=== PATIENT | male | born 1985 | race Caucasian/White ===

== ENCOUNTER 2016-03-02 14:27 | Emergency (ER) | payer BC ==
--- NOTE | 2016-03-02 14:31 | US ---
Testicular ultrasound 1327 hours. History: Right testicular pain for 2 days. Findings: Right testicle: Is diffuse heterogeneous echotexture to the right testicle. No focal mass is seen. Th e right testicle measures 4.9 x 3.7 x 3 cm. There is mild increase in color flow and pattern to the r ight testicle. There is moderate thickening associated with the right epididymis, especially the epid idymal tail measures about 16 mm. There is increase color flow enhancement associated with the epidid ymis as well. There are 2 incidental calcifications suspected in the right epididymal tail. Mild to m oderate right-sided hydrocele is noted. Left testicle: There is a normal homogeneous echotexture to the left testicle which measures 4.2 x 2. 8 x 2.4 cm. Normal color flow Doppler pattern is seen. The left epididymis is normal in appearance an d size. There is normal color flow pattern to the epididymis on the left as well. Small left-sided hy drocele is evident. There is no varicocele. Impression: 1. Right-sided epididymoorchitis suspected. These findings were discussed by telephone with Dr. Bhupendra Johnson at 1424 hrs.
[2016-03-02 14:40] VITALS: TEMP 98.4
--- NOTE | 2016-03-02 14:56 | EDPHY ---
H & P Time Seen by Provider: 03/02/16 14:33 HPI/ROS: HPI Testicular swelling. 30-year-old female by private vehicle with his . This patient complains of right-sided testicular swelling without pain since Thursday. No history of trauma. He has not had any associated fever, parotid gland discomfort or other indication of Mumps. He is immunocompetent and fully immunized. He is here with his and is monogamous. Prior to arrival he was seen by his primary care physician Dr. Bhupendra Johnson. He was sent to the emergency department to have a testicular ultrasound done. I received a call from radiologist Dr. Hermilo Lopez who informed me the ultrasound indicated epididymitis orchitis involving the right testicle. No evidence of torsion or other pathology. ROS: Constitutional: No fever, no chills. No weakness. Eyes: No discharge. No changes in vision. ENT: No sore throat. No nasal congestion or rhinorrhea. Respiratory: No cough. No shortness of breath. Cardiac: No chest pain, no palpitations. Gastrointestinal: No abdominal pain, no vomiting, no diarrhea. Genitourinary: No hematuria. No dysuria or increased frequency with urination. As above. Musculoskeletal: No back pain. No neck pain. No myalgias or arthralgias. Skin: No rashes. Neurological: No headache. No focal weakness or altered sensation. Past medical history: Denies. Social history: Here with his . Nonsmoker. Physical Exam: General Appearance: Alert, no distress. This patient is responding to questions appropriately and in full sentences. This patient appears well- hydrated and well-nourished. Eyes: Pupils equal and round no pallor or injection. No lid edema, erythema or injection. Testicular exam: He has swelling to the right testicle and right epididymis without significant tenderness on palpation. There is mild associated erythema. No warmth. Penis and testicular exam otherwise normal. No discharge. No scrotal or skin lesions. Gastrointestinal: Abdomen is soft and nontender, no masses, bowel sounds normal. No focal tenderness at McBurney's point. No Willingham sign. Neurological: Motor sensory function is grossly intact. Cranial nerves are normal. Gait is normal. Skin: Warm and dry, no rashes. Extremities are symmetrical. All joints range without pain or impingement. Psychiatric: No agitation. No depression. Database: EKG: Imaging: Procedures: Emergency department course: After my evaluation, he provided us a urine sample. He is not in any pain. Results of his ultrasound were discussed with him. His vital signs have been reviewed and are normal. No fever. 3:10 p.m., patient evaluated. Comfortable at this time. He states he is monogamous. I will put him on Levaquin 500 mg daily for the next 10 days. He was given his 1st dose in the emergency department. I spoke with his primary care physician, Dr. Bhupendra Johnson, Dr. Johnson is in agreement with above management. Dr. Johnson will see this patient on follow-up for re-evaluation early this week. Return to emergency department precautions were discussed with the patient and his . All of his questions were answered. He was discharged in good condition. Differential Diagnosis: The differential diagnosis on this patient includes but is not limited to epididymitis, orchitis. The testicular torsion, mumps unlikely. This represents a partial list of diagnoses considered. These considerations are based on history, physical exam, past history, reassessment and diagnostic testing. Smoking Status: Never smoked Constitutional: Initial Vital Signs Temperature (C) 36.9 C 03/02/16 14:39 Heart Rate 80 03/02/16 14:39 Respiratory Rate 14 03/02/16 14:39 Blood Pressure 167/92 H 03/02/16 14:39 O2 Sat (%) 96 03/02/16 14:39 O2 Delivery Mode Room Air Allergies/Adverse Reactions: cornelia Allergy (Verified 03/02/16 14:38) Home Medications: Medication Instructions Recorded levOFLOXACIN [levAQUIN (*)] 500 mg PO DAILY #9 tab 03/02/16 Medical Decision Making - Data Points Laboratory Results: 03/02/16 03/02/16 15:37 15:15 Urine Color COLORLESS Urine Appearance CLEAR Urine pH 6.0 (5.0-7.5) Ur Specific [place] 1.003 (1.002-1.030) Urine Protein NEGATIVE (NEGATIVE) Urine Ketones NEGATIVE (NEGATIVE) Urine Blood NEGATIVE (NEGATIVE) Urine Nitrate NEGATIVE (NEGATIVE) Urine Bilirubin NEGATIVE (NEGATIVE) Urine Urobilinogen NEGATIVE EU (0.2-1.0) Ur Leukocyte Esterase NEGATIVE (NEGATIVE) Urine RBC NONE SEEN /hpf (0-3) Urine WBC 1-3 /hpf (0-3) Ur Epithelial Cells NONE SEEN /lpf (NONE-1+) Ur Culture Indicated? NOT INDICATED (NI) Urine Glucose NEGATIVE (NEGATIVE) C.trachomatis RNA (TMA) Pending N.gonorrhoeae RNA (TMA) Pending Medications Given: Discontinued Medications Levofloxacin (Levaquin) 500 mg PO EDNOW ONE PRN Reason: Protocol Stop: 03/02/16 15:15 Last Admin: 03/02/16 15:23 Dose: 500 mg Departure - Departure Disposition: Home, Routine, Self-Care Clinical Impression: Acute orchitis, Epididymitis, right Condition: Good Instructions: Epididymo-Orchitis (ED) Additional Instructions: Read and follow provided instructions. Follow-up with your primary care physician, Dr. Bhupendra oJhnson, in 1-2 days for re -evaluation. Take medication as prescribed through entire course of treatment unless otherwise directed by your physician. Return to the emergency department for worsening pain, swelling, fever, discoloration or other serious concerns. Referrals: Bhupendra Johnson MD [Primary Care Provider] - As per Instructions Prescriptions: levOFLOXACIN [levAQUIN (*)] 500 mg PO DAILY #9 tab
[2016-03-02 15:37] VITALS: BP 127/84; PULSE 78; RESP 16; O2SAT 98
[2016-03-02 16:09] LABS: COLOR COLORLESS; LEUKOCYTE ESTERASE,URINE NEGATIVE (NEGATIVE); NITRITE,URINE NEGATIVE (NEGATIVE)
[2016-03-02 16:16] LABS: RBC,URINE NONE SEEN /hpf (0-3)
[2016-03-03 15:03] LABS: CHLAMYDIA AMPLIFICATION GENPRB NEGATIVE (NEGATIVE)
== END 2016-03-02 15:36 | disposition home or self-care (01) ==
LOC: EDSTATUS 14:27
DX: N45.2 Orchitis (principal); N45.1 Epididymitis

== ENCOUNTER → 2016-03-13 | Outpatient (CLI) | payer BC ==
--- NOTE | 2016-03-13 19:06 | US ---
Testicular Sonography History: Reevaluate enlarged painful right testicle Comparison: March 02, 2016 Technique: Real-time imaging with a high frequency transducer and both color and pulsed duplex dopple r analysis. Findings: The right testicle remains enlarged and is heterogeneous. There is normal arterial and veno us blood flow in the right testicle compared to the left. There is a suggestion of a large ovoid mass within peripherally compressed normal testicular tissue. Currently the right testicle measures 5.4 x 4.3 x 4.5 cm compared to prior 4.9 x 3 x 3.7 cm. Currently the left testicle looks normal and measur es 4.6 x 2.4 x 2.7 cm. There is a small right hydrocele, slightly larger than was present previously. There is no inguinal hernia. Impression: Suspect right testicular mass rather than orchitis. Results discussed with Dr. Bhupendra Johnson at 7:04 PM. The patient was then escorted to Dr. Johnson in [facility] emergency room.
== END ==
LOC: FIMAGING 17:48
PROVIDERS: ATTEND Emergency Medicine
DX: N50.811 Right testicular pain (principal); N43.3 Hydrocele, unspecified

== ENCOUNTER → 2016-03-31 | Outpatient (CLI) | payer BC ==
--- NOTE | 2016-03-31 16:36 | US ---
"Testicular Sonogram Clinical Indications: Right testicular pain. Technique: Scrotal contents were imaged with the high-resolution transducer. Color and pulsed Doppl er/duplex were recorded on each side. Comparison: Ultrasound March 02, 2016 and March 13, 2016. Findings: Right testis measures 6.9 x 5.2 x 3.9 cm and left testis measures 4.1 x 2.7 x 2.2 cm. Rig ht testis is diffusely heterogeneous, with a solid mass replacing the majority of the right testis in creased since the previous study consistent with testicular neoplasm. There is color Doppler flow th roughout the right testicular mass, without evidence of torsion. Left testis appears normal, without masses or torsion. Duplex/Doppler signals are normal, without evidence of torsion or inflammation. No epididymal enlargement. No varicoceles. Small bilateral hydroceles. Impression: 1. Increase in size of right testicular mass completely replacing the right testis, now measuring 6. 9 x 5.2 x 3.9 cm, most likely a malignant neoplasm. 2. Normal left testis. 3. Small bilateral hydroceles. 4. No testicular torsion. Findings and recommendations discussed with Physician Hides Inspector Carrie for Dr. Mike Resendez M.D. a t 1615 hours, on March 31, 2016. Final report concurs with initial preliminary interpretation. A Follow-Up Required test result has been communicated via the [employer] | Critical Result syst em on 03/31/2016 16:20, Message ID [id number]."
== END ==
LOC: FIMAGING 15:11
PROVIDERS: ATTEND Urology
DX: N50.811 Right testicular pain (principal); D29.21 Benign neoplasm of right testis; N43.3 Hydrocele, unspecified

== ENCOUNTER → 2016-04-04 | Outpatient (CLI) | payer BC ==
[~2016-04-04] MED LIST: IOPAMIDOL (ISOVUE-300) 100 ML BTL IV ONE
--- NOTE | 2016-04-04 14:59 | CT ---
CT Chest, Abdomen, and Pelvis With Contrast History: 30-year-old with probable testicular cancer. Status post orchiectomy earlier today. Comparison: None available. Technique: Axial contrast enhanced images were obtained through the chest, abdomen and pelvis followi ng the uneventful administration of oral contrast and 90 mL Isovue-300 intravenous contrast. Dose red uction techniques were utilized. Findings Chest: There is mild basilar atelectasis with trace effusions. No pulmonary nodules are present. Hear t size is normal. The aorta is normal caliber without dissection. No pathologically enlarged lymph no yuri are identified. No aggressive osseous lesions are present. Abdomen: The liver, gallbladder, spleen, pancreas, adrenals, and kidneys are normal. The colon and small bowel are normal caliber. The appendix is normal. There is no free fluid or air. The aorta is normal caliber. The IVC, portal, splenic, and superior mesenteric veins are patent. Ther e are multiple prominent retroperitoneal lymph nodes, the largest an aortocaval node measuring 1.3 x 1.1 cm (series 6, image 169). Mild annular bulges are present in the lower lumbar spine. No aggressive osseous lesions are present. Pelvis: There is expected postsurgical change in the scrotum and groin from recent orchiectomies. The bladder is diffusely thick-walled and nearly decompressed. There is trace free fluid. There is a trudi graphic lucent lesion in the right iliac bone with preservation of the overlying cortex without expan kari, likely benign. No aggressive osseous lesions are present. Impression: 1. Aortocaval adenopathy suspicious for metastatic disease. 2. Benign-appearing geographic lucent lesion in the right iliac bone. 3. Diffuse bladder wall thickening, which could be related to underdistention or inflammation. 4. Trace pleural effusions. 5. Additional findings as above. Findings discussed with Ligia Escobedo in Dr. Je Diamond's office on 04/04/2016 at 1447 hours.
== END ==
LOC: FIMAGING 09:31
PROVIDERS: ATTEND Specialist
DX: C62.90 Malignant neoplasm of unspecified testis, unspecified whether descended or undescended (principal); Z90.79 Acquired absence of other genital organ(s); R59.9 Enlarged lymph nodes, unspecified; M85.80 Other specified disorders of bone density and structure, unspecified site
CPT/HCPCS: Q9967

== ENCOUNTER → 2016-06-05 | Outpatient (CLI) | payer BC, OTHER | LOC: FIMAGING 11:47 | DX: C62.11 Malignant neoplasm of descended right testis (principal); M89.8X8 Other specified disorders of bone, other site | CPT/HCPCS: Q9967 ==